=== PATIENT | female | born 1975 | race Caucasian/White ===

== ENCOUNTER 2024-04-27 21:30 | Emergency (ER) | payer SELFPAY ==
[2024-04-27 21:33] VITALS: BP 174/114
[2024-04-27 21:52] LABS: Hematocrit 35.3 % (37.0-47.0); Hemoglobin 11.7 g/dL (12.0-16.0); Mean Corp Hgb Conc. 33.1 g/dL (33.0-37.0); Mean Corpuscular Hgb 27.3 pg (27.0-31.0); Mean Corpuscular Volume 82.3 fL (81.0-99.0); Mean Platelet Volume 10.3 fL (7.4-10.4); Platelet Count 260 10^3/uL (130-400); Red Blood Cell Count 4.29 10^6/uL (4.20-5.40); Red Cell Dist. Width 14.3 % (11.5-14.5); White Blood Cell Count 11.6 10^3/uL (4.8-10.8)
[2024-04-27 21:52] LABS: Urine Albumin 1+ (Neg - Trace); Urine Bilirubin Negative (Negative); Urine Character Slightly Cloudy (Clear); Urine Color Yellow; Urine Glucose Negative (Negative); Urine Ketone Negative (Negative); Urine Leukocyte 2+ (Negative); Urine Nitrite Negative (Negative); Urine Occult Blood 1+ (Negative); Urine Specific Gravity 1.015 (<1.030); Urine Urobilinogen Negative (Neg - 1+)
[2024-04-27 22:03] LABS: HCG, Serum Qualitative Screen Negative
[2024-04-27 22:06] LABS: Blood Urea Nitrogen 16 mg/dl (7-17); Calcium 9.4 mg/dl (8.4-10.2); Carbon Dioxide 27 mmol/L (22-30); Chloride 100 mmol/L (98-107); Glucose 109 mg/dl (70-99); Potassium 4.3 mmol/L (3.5-5.1); Sodium 140 mmol/L (135-145); eGFR > 60.00
[2024-04-27 22:26] LABS: Urine White Cell 40-50 /HPF (0-5)
[2024-04-27 22:27] LABS: Urine Squamous Cell >30 /LPF (Few)
[2024-04-28 00:15] VITALS: BP 131/86
[2024-04-28 00:27] VITALS: BMI 38.7
--- NOTE | 2024-04-28 00:31 | ED.GENMED ---
Addendum entered and electronically signed by Krishna Matias PA-C 04/30/24 07:50:
Urine culture preliminarily shows 100,000 colony-forming units of E. coli. On cefdinir. Diabetes pending
Original Note:
History of Present Illness
General
Chief Complaint: Urinary Symptoms
Source: patient
Exam Limitations: none
Time Seen by Provider: 04/28/24 00:08
History of Present Illness
History of Present Illness:
This is a 49 year old female that comes in with c/o feeling like she had a UTI. States that yesteday she felt like she was getting a UTI so she started increased her water intake and drink Cranberry juice. States that she felt better when she went
to bed. Sates that today she had more discomfort with urination and there was right sided abd pain that wrapped around to the back. States that it was also going down into her leg. States that she has felt nauseated and had some diarrhea with the
urinary burning.
Past History
Past History
ED Past Medical History: GERD, HTN, Psychiatric (Anxiety) and Other (Pilonidal cyst)
ED Past Surgical History: Appendectomy, (X 2) and Orthopedic (Right knee surgery, Right hand tendon repair)
Social History
Tobacco: Former smoker
Alcohol: None
Drug: Marijuana
Personal:
Living: with family
Review of Systems
Review of Systems
All Other Systems: ROS reviewed and negative except as documented in HPI and ROS
Constitutional: Reports no symptoms; Denies fever or chills
EENT: Reports no symptoms
Respiratory: Reports no symptoms; Denies cough or trouble breathing
Cardiac: Reports no symptoms; Denies chest pain
ABD/GI: Reports abdominal pain (Right sided), nausea and diarrhea; Denies vomiting
: Reports dysuria, frequency and flank pain (Right sided); Denies urgency
Musculoskeletal: Reports no symptoms
Skin: Reports no symptoms
Neurological: Reports no symptoms; Denies dizzy or headache
Psychiatric: Reports no symptoms
Phy Exam
General Physical Exam
General Presentation: well appearing and no apparent distress
General age: appears stated age
General Skin: warm and dry
General Habitus: normal
General Mental: alert
General Hydration: appears well hydrated
ENT Exam
ENT Exam: TM's normal, pharynx normal and neck supple
Eye Exam
Eye Exam: EOMI
Cardiovascular Exam
Cardiovascular Exam: regular rate/rhythm, no edema, no murmur and normal peripheral pulses
Pulmonary Exam
Pulmonary Exam: lungs clear, no respiratory distress, no rales, chest non tender, no crackles, no rhonchi, no wheezing and no cough
Gastrointestinal Exam
Gastrointestinal Exam: normal bowel sounds, soft, no organomegaly, no pulsatile mass, non distended, no cva tenderness and tender (Slight right sided tenderness with palpation)
Musculoskeletal Exam
Musculoskeletal Exam: full ROM and no edema
Skin Exam
Skin Exam: normal color, warm/dry, no rash and no petechia
Psychiatric Exam
Psychiatric Exam: normal mood/affect
Course
Orders/Labs/Results
Orders:
Orders
04/27/24 21:37
Test Result ONCE
04/27/24 21:43
Basic Metabolic Panel Urgent
Complete Blood Count/No Diff Urgent
HCG, Serum Qualitative Screen Urgent
04/27/24 21:44
Urinalysis Urgent
Date Specimen was Collected: 04/27/24
Time Specimen was Collected: 21:37
Urine Microscopic Urgent
Date Specimen was Collected: 04/27/24
Time Specimen was Collected: 21:37
04/28/24 00:22
Urinalysis Reflex To Culture Urgent
Date Specimen was Collected: 04/28/24
Time Specimen was Collected: 00:19
Urine Microscopic Reflex Cult Urgent
Urine Culture Urgent
SHI Source: U
Specimen Description:
Date Specimen was Collected: 04/28/24
Time Specimen was Collected: 00:19
04/28/24 00:30
CT Abd/pel Without Iv Or Oral Urgent
Comment: appendectomy
Reason For Exam: Right flank pain
0.9% Sodium Chloride 1000 ml [Nss] 1,000 ml IV BOLUS
Ketorolac [Toradol] 30 mg IV NOW STA
Ondansetron Injectable [Zofran] 4 mg IV NOW STA
04/28/24 02:07
CefTRIAXone [Rocephin] 1,000 mg IV NOW STA
04/28/24 02:12
Sterile Water [Sterile Water For Injection] 10 ml .[address] .[facility]
Abnormal Lab Results
04/27/24 04/27/24 04/28/24
21:43 21:44 00:22
WBC 11.6 H 10^3/uL
(4.8-10.8)
Hgb 11.7 L g/dL
(12.0-16.0)
Hct 35.3 L %
(37.0-47.0)
Glucose 109 H mg/dl
(70-99)
Urine Occult Blood 1+ A
(Negative)
Ur Occult Blood Reflex 1+ A
(Negative)
Urine Nitrite (Reflex) Positive A
(Negative)
Ur Leukocyte Esterase 2+ A
(Negative)
Leukocyte Esterase Rfl 2+ A
(Negative)
Urine RBC 3-6 A /HPF 26-30 A /HPF
(0-2) (0-2)
Urine WBC 40-50 A /HPF
(0-5)
Urine WBC (Reflex) >100 A /HPF
(0-5)
Urine Bacteria (Reflex) Many A
(Negative)
Urine Albumin 1+ A
(Neg - Trace)
Urine Albumin (Reflex) 1+ A
(Neg - Trace)
04/27/24 21:43
04/27/24 21:43
WBC slightly elevated. H/H slightly low, Glucose nonfasting. Urine positive for infection, HCG negative
Vital Signs
Initial and Last Documented VS:
Initial Vital Signs
Temp Pulse Resp BP Pulse Ox
98 F 76 24 174/114 100
04/27/24 21:33 04/27/24 21:33 04/27/24 21:33 04/27/24 21:33 04/27/24 21:33
Last Documented Vital Signs
Temp Pulse Resp BP Pulse Ox
98 F 72 18 134/69 98
04/27/24 21:33 04/28/24 02:00 04/28/24 02:00 04/28/24 02:00 04/28/24 02:00
MDM/Problems Addressed
Differential Diagnosis Includes:
renal calculus, UTI, Pyelonephritis
MDM/Problems Addressed:
This is a 49 year old female that comes in with c/o right sided abd pain and urinary burning and frequency. states that this started yesterday.
will check labs. IV fluids. Pain medication and CT scan.
back into see patient. Explained that she has a urinary tract infection. The CT shows that there is very mild hydronephrosis and hydroureter with stranding and this could be due to infection or that she already passed a stone. Patient has been given
IV antibiotic here and will place her on oral antibiotics for home. Encouraged patient to follow up with the PCP a week after she is off the medication for a repeat urine. Patient to return with any concerns.
Chronic conditions affecting care:
NA
Acute Exacerbation and/or Progression of Chronic Illness:
NA
*Radiology
Radiology exam reviewed: radiology read reviewed (CT night hawk-Very mild right hydronephrosis, hydroureter and perinephric stranding. No definite stone identified. May reflect a recently passes stone or infection. Other less likely considerations
include radiolucent/occult stone, hematoma, stricture or neoplasm. Please clinically correlate with ), all reviewed NAD by ED Provider (C cont- history and for signs and symptoms of infection. Appendectomy. Bowel is without evidence of obstruction.
Gallbladder is unremarkable. NO obvious stones but CT has a diminished sensitivity for noncalcified gallstones. No biliary dilation. No adnexal masses or significant free fluid. ) and other (Ct cont- fatty liver. Lack of Intravenous contrast
diminishes evaluation of the visceral organs. )
*Pulse Oximetry
Patient hypoxic: no
*EKG
Interpreted by ED Provider?: NA
Rate: EKG- N/A
*Blind Cleaner Interpretation
Rate: Blind Cleaner- N/A
*Critical Care Note
Total Time (30-74mins, 75-104mins- exclusive of procedures): Not Applicable
ED Attending Note
-
Portions of this chart may have been created with voice recognition software.� Occasional wrong word or��sound alike� substitutions may have occurred due to the inherent limitations of voice recognition software.
Discharge Plan
Departure
Patient Disposition: Home (Routine Discharge)
Date of Disposition: 04/28/24
Time of Disposition: 02:58
Patient with high blood pressure during this ER visit?: Yes
Condition: Good
Covid-19: Not Applicable
Discharge Problem:
Urinary tract infection
Instructions: Urinary Tract Infection, Adult (DC), BLOOD PRESSURE
Prescriptions:
New
cefdinir 300 mg capsule
300 mg PO BID Qty: 14 0RF
No Action
lisinopril 5 MG tablet
5 mg PO DAILY
pantoprazole 40 mg Tablet,Delayed Release (Dr/Ec)
40 mg PO DAILY
sertraline 150 mg Capsule
150 mg PO DAILY
Referrals:
Katie Humphreys PA-C [Family Provider] - Follow up in 10 days
Activity Restrictions/Additional Instructions:
As discussed, your do have a urinary tract infection. There was very mild hydronephrosis of the left with stranding of the ureter. This may be due to infection or you recently passed a stone. You have been given IV antibiotic here and a prescription
has been sent to your pharmacy. Please increase your water intake to 8-8oz glasses daily. Follow up with the family doctor for repeat urine after you have been off the antibiotic for a week. IF YOU HAVE FEVER, INCREASED OR CHANGING PAIN, OR YO HAVE
ANY OTHER CONCERNS PLEASE RETURN TO THE EMERGENCY ROOM .
Interventions
Interventions:
*Risk Screen - Suicide Last Done: 04/27/24 21:33
*General Assessment Last Done: 04/28/24 00:13
*Neglect/Abuse Screening Last Done: 04/27/24 21:33
ED- Fall Risk Assessment Last Done: 04/28/24 00:25
*ED COVID-19 Vaccine History Last Done: 04/28/24 00:13
NM-Rybfky-Hovcwpqnyf Assessment Last Done: 04/28/24 00:25
ED-Female Genitourinary Assessment Last Done: 04/28/24 00:25
Discharge Date and Time
Print Language: ARMENIAN
[2024-04-28 00:36] LABS: Urine Albumin 1+ (Neg - Trace); Urine Bilirubin Negative (Negative); Urine Character Slightly Cloudy (Clear); Urine Color Yellow; Urine Glucose Negative (Negative); Urine Ketone Negative (Negative); Urine Leukocyte 2+ (Negative); Urine Nitrite Positive (Negative); Urine Occult Blood 1+ (Negative); Urine Urobilinogen Negative (Neg - 1+)
[2024-04-28] MEDS: NSS 1000 IV (00:43)
[2024-04-28] MEDS: TORADOL 30 MG IV (00:44)
[2024-04-28] MEDS: ZOFRAN 4 MG IV (00:44)
[2024-04-28 01:15] VITALS: BP 137/82
[2024-04-28 01:18] LABS: Urine Squamous Cell >30 /LPF (Few)
[2024-04-28 01:19] LABS: Urine Amorphous Seen; Urine White Cell >100 /HPF (0-5)
[2024-04-28 01:20] LABS: Urine Bacteria Many (Negative); Urine Red Blood Cell 26-30 /HPF (0-2)
[2024-04-28 02:00] VITALS: BP 134/69
[2024-04-28] MEDS: ROCEPHIN 1000 MG IV (02:13)
[2024-04-28 03:00] VITALS: BP 130/85
== END 2024-04-28 03:15 | disposition home or self-care (01) ==
LOC: EMR 21:30
PROVIDERS: Clinical Nurse Specialist Family Health; Student in an Organized Health Care Education/Training Program; EMERGENCY PHYSICIAN Emergency Medicine; FAMILY PHYSICIAN Student in an Organized Health Care Education/Training Program
DX: N39.0 Urinary tract infection, site not specified (principal); B96.20 Unspecified Escherichia coli [E. coli] as the cause of diseases classified elsewhere; R11.0 Nausea; R19.7 Diarrhea, unspecified; N13.30 Unspecified hydronephrosis; K76.0 Fatty (change of) liver, not elsewhere classified; K21.9 Gastro-esophageal reflux disease without esophagitis; I10 Essential (primary) hypertension; F41.9 Anxiety disorder, unspecified; Z87.891 Personal history of nicotine dependence; Z91.030 Bee allergy status
CPT/HCPCS: 99284; 96374; 96375 ×2; 96361; 74176; 80048; 81003; 81015; 84703; 85027; 87086; 87088; 87186

== ENCOUNTER 2024-09-22 15:11 | Emergency (ER) | payer SELFPAY ==
[2024-09-22 15:13] VITALS: BP 167/110
--- NOTE | 2024-09-22 15:45 | ED.GENMED ---
History of Present Illness
General
Chief Complaint: Head Injury
Source: patient
Time Seen by Provider: 09/22/24 15:28
History of Present Illness
History of Present Illness:
49-year-old female with past medical history of hypertension and GERD presenting to the emergency department for evaluation of head injury that occurred when she was at work, was bending down to a student change as his pants and got no wet and the
student jumped up striking the patient in the right frontal forehead noting that she immediately saw stars, felt dazed and is now had a worsening headache, light sensitivity and 'feeling off'. Patient does note a history of migraines as well and
states she feels as if the migraine is likely getting triggered. She denies any loss consciousness, vomiting, visual changes, focal weakness or numbness or any other concerns. Denies any use of anticoagulants.
Past History
Past History
ED Past Medical History: GERD, HTN, Psychiatric (Anxiety) and Other (Pilonidal cyst)
ED Past Surgical History: Appendectomy, (X 2) and Orthopedic (Right knee surgery, Right hand tendon repair)
Social History
Tobacco: Former smoker
Alcohol: None
Drug: Marijuana
Personal:
Living: with family
Review of Systems
Review of Systems
All Other Systems: ROS reviewed and negative except as documented in HPI and ROS
Phy Exam
Physical Exam
Physical Exam:
GENERAL: Alert , in no apparent distress
HEAD: Small contusion to the right forehead just proximal to the right eyebrow
EYE: conjunctiva clear, pupils 4 mm bilateral
NECK: Supple, no midline tenderness
ENT: mmm. Patient able to open and close jaw as well as medially and laterally deviate without pain. No dental injury
LUNGS: no acute respiratory distress
NEUROLOGICAL: Alert and oriented, ambulates with steady gait, no dysmetria or ataxia
SKIN: Warm and dry, skin intact.
MUSCULOSKELETAL: well perfused.
PSYCH: Normal and appropriate interaction.
Scores
Heart Failure Risk
Heart Failure Risk Score: Not Applicable
Heart Score for Chest Pain Patients
STEMI patient?: Not applicable
Withdrawal Assessment of Alcohol
Withdrawal Assessment Completed?: Not applicable
Course
Vital Signs
Initial and Last Documented VS:
Initial Vital Signs
Temp Pulse Resp BP Pulse Ox
98.3 F 83 16 167/110 98
09/22/24 15:13 09/22/24 15:13 09/22/24 15:13 09/22/24 15:13 09/22/24 15:13
Last Documented Vital Signs
Temp Pulse Resp BP Pulse Ox
98.3 F 86 18 160/90 98
09/22/24 15:13 09/22/24 16:22 09/22/24 16:22 09/22/24 16:22 09/22/24 16:22
MDM/Problems Addressed
Differential Diagnosis Includes:
Contusion, concussion, I do not have concern for intracranial bleeding or calvarial fracture, tension headache, migraine headache
MDM/Problems Addressed:
49-year-old female presenting to the ER for evaluation after she was excellently hit in the right frontal scalp by a child proximately 45 minutes prior to arrival to the ER. Patient does note some mild postconcussive symptoms. We discussed risk
versus benefit of CT imaging and at this time patient feels comfortable foregoing CT scan. Advised on symptomatic care of head injury/concussion. Patient will follow-up with primary care provider as needed. Aware of return precautions to the ER.
Stable for discharge.
*Pulse Oximetry
Patient hypoxic: no
*Critical Care Note
Total Time (30-74mins, 75-104mins- exclusive of procedures): Not Applicable
ED Attending Note
-
Portions of this chart may have been created with voice recognition software.� Occasional wrong word or��sound alike� substitutions may have occurred due to the inherent limitations of voice recognition software.
Discharge Plan
Departure
Patient Disposition: Home (Routine Discharge)
Date of Disposition: 09/22/24
Time of Disposition: 15:45
Patient with high blood pressure during this ER visit?: Yes
Discharge Problem:
Head injury
Instructions: Concussion, Adult (DC)
Prescriptions:
No Action
lisinopril 5 MG tablet
5 mg PO DAILY
pantoprazole 40 mg Tablet,Delayed Release (Dr/Ec)
40 mg PO DAILY
sertraline 150 mg Capsule
150 mg PO DAILY
cefdinir 300 mg capsule
300 mg PO BID Qty: 14 0RF
Stand Alone Forms: Return to Work
Interventions
Interventions:
*Risk Screen - Suicide Last Done: 09/22/24 15:24
*General Assessment Last Done: 09/22/24 15:24
*Neglect/Abuse Screening Last Done: 09/22/24 15:24
*ED COVID-19 Vaccine History Last Done: 09/22/24 15:24
*Nursing Disposition Last Done: 09/22/24 16:22
ED- Neurological Assessment Last Done: 09/22/24 15:24
ED-Skin Assessment Last Done: 09/22/24 15:24
Discharge Date and Time
Discharge Date/Time: 09/22/24 16:23
Print Language: PAP[place]
[2024-09-22 16:22] VITALS: BP 160/90
== END 2024-09-22 16:23 | disposition home or self-care (01) ==
LOC: EMR 15:11
PROVIDERS: EMERGENCY PHYSICIAN Student in an Organized Health Care Education/Training Program; FAMILY PHYSICIAN Student in an Organized Health Care Education/Training Program
DX: S00.83XA Contusion of other part of head, initial encounter (principal); W50.0XXA Accidental hit or strike by another person, initial encounter; Y99.0 Civilian activity done for income or pay; I10 Essential (primary) hypertension; K21.9 Gastro-esophageal reflux disease without esophagitis; Z87.891 Personal history of nicotine dependence
CPT/HCPCS: 99282

== ENCOUNTER 2025-05-10 14:15 | Emergency (ER) | payer SELFPAY ==
[2025-05-10 14:18] VITALS: BP 148/95
--- NOTE | 2025-05-10 16:43 | ED.GENMED ---
History of Present Illness
General
Chief Complaint: Head Injury
Source: patient
Exam Limitations: none
Time Seen by Provider: 05/10/25 15:22
Nursing documentation reviewed up to this point in time: agreed with
History of Present Illness
History of Present Illness:
see MDM
Past History
Past History
ED Past Medical History: GERD, HTN, Psychiatric (Anxiety) and Other (Pilonidal cyst)
ED Past Surgical History: Appendectomy, (X 2) and Orthopedic (Right knee surgery, Right hand tendon repair)
Social History
Tobacco: Former smoker
Alcohol: None
Drug: Marijuana
Personal:
Living: with family
Review of Systems
Review of Systems
Allergies reviewed?: Yes
All Other Systems: Not applicable
Phy Exam
Physical Exam
Physical Exam:
GENERAL: Alert , in no apparent distress
HEAD: NCAT
EYE: pupils equal and reactive, no nystagmus, minimal photophobia, NO VISION LOSS; NO VISUAL FIELD CUTS
NECK: Supple,full rom, nontender
ENT: o/p clr, mmm.
CARDIAC: Regular rate and rhythm . no edema
LUNGS: Clear breath sounds bilaterally, no acute respiratory distress, no wheezes/rales/rhonchi
ABDOMEN: Soft, without focal tenderness, no r/g, no cvat
NEUROLOGICAL: Alert and orientedx 4, cn intact, no facial asymmetry, 5/5 strength in UE/LE, sensation intact, romberg neg, ambulates without assistance, neg pronator drift
SKIN: Warm and dry, skin intact.
MUSCULOSKELETAL: No edema, well perfused.
PSYCH: Normal and appropriate interaction.
Course
Orders/Labs/Results
Orders:
Orders
05/10/25 15:33
CT Head W/o Iv Contrast Urgent
Comment:
Reason For Exam: L posterior head injury, no thinners
Vital Signs
Blood pressure: 137/92
Initial and Last Documented VS:
Initial Vital Signs
Temp Pulse Resp BP Pulse Ox
36.8 C 70 16 148/95 98
05/10/25 14:18 05/10/25 14:18 05/10/25 14:18 05/10/25 14:18 05/10/25 14:18
Last Documented Vital Signs
Temp Pulse Resp BP Pulse Ox
36.8 C 70 16 137/92 98
05/10/25 14:18 05/10/25 14:18 05/10/25 14:18 05/10/25 17:15 05/10/25 16:46
MDM/Problems Addressed
Differential Diagnosis Includes:
see MDM
MDM/Problems Addressed:
Note:
CHIEF COMPLAINT(S)
Headache and visual disturbances following a head injury.
HISTORY OF PRESENT ILLNESS
The patient is a 50-year-old female who experienced a head injury at work when a student struck her ont he back of the head approx 2 hours ago. Despite turning her head to avoid the impact, the patient did not lose consciousness. However, she
immediately developed a headache similar to his typical migraine episodes. The patient reported blurry vision and intermittent double vision in the left eye, the double vision has resolved; but she still has L eye blurriness, SHE NOTES THE DOUBLE
VISION AND BLURRY VISION IS CHRONIC FOR HER WITH HER MIGRAINES. sHe also experienced slight nausea and lightheadedness, causing difficulty when walking.
The patient has a history of migraines without regular neurologist consultation. Her migraines predominantly affect the left side, sometimes leading to temporary vision loss in the left eye. Previous diagnostic workups, including angiography, have
not revealed significant findings. The patient is unsure if current symptoms are due to migraine or concussion. she is on medication for hypertension, depression, and thyroid issues, and takes analgesics such as Excedrin for migraines, which
contains aspirin, caffeine, and acetaminophen.
PAST MEDICAL AND SURIGICAL HISTORY
1. Hypertension
2. Depression
3. Thyroid disorder
MEDICATIONS
1. Antihypertensive (Exact medication unspecified)
2. Antidepressant
3. Thyroid medication
4. Excedrin for migraines
REVIEW OF SYSTEMS
- Neurological: Headache, blurry vision, and intermittent double vision.
- Gastrointestinal: Nausea.
- Cardiovascular: Lightheadedness.
PHYSICAL EXAM
see above
- Nursing notes reviewed and vital signs reviewed.
PROBLEM LIST
Acute:
1. Headache and visual disturbances possibly secondary to head trauma or migraine.
2. Nausea and lightheadedness post head injury.
Chronic:
1. Hypertension
2. Depression
3. Thyroid disorder
PLAN
1. Conduct a CT scan of the head to rule out any intracranial bleeding or structural injury.
2. Offer migraine treatment via Excedrin or intravenous medication, depending on severity and patient preference.
3. Monitor patient for changes in symptoms or neurologic deficits.
DIFFERENTIAL DIAGNOSIS
The Differential Diagnosis includes, in no particular order and is not limited to:
1. Migraine with aura
2. Concussion
3. Intracranial hemorrhage
4. Ocular migraine
5. Transient ischemic attack
6. Vertigo
7. Vestibular migraine
8. Stroke
9. Retinal detachment
10. Hypertensive crisis
50 y/o F
h/o htn
migranies with aura
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
no LOC
has L sided headache with some L blurriness in the eye which is typical of her migraines
she also feels nauseated and 'off'
no AC
neuro intact here, the L eye was minimally blurry and without vision loss, and improved from previous
headache 5/10
no neck tendneress
ct head neg
pt declined pain meds, will take excedrin at home
return precautions
workman'[s comp clearance for concussion
appreciate bp, pt is in some pain and likely related to her situation and headache
*Pulse Oximetry
SaO2: 98
Oxygen Mode of Delivery: Room air
Patient hypoxic: no (98)
*Critical Care Note
Total Time (30-74mins, 75-104mins- exclusive of procedures): Not Applicable
ED Attending Note
-
Portions of this chart may have been created with voice recognition software.� Occasional wrong word or��sound alike� substitutions may have occurred due to the inherent limitations of voice recognition software.
Discharge Plan
Departure
Patient Disposition: Home (Routine Discharge)
Date of Disposition: 05/10/25
Time of Disposition: 17:07
Patient with high blood pressure during this ER visit?: No
Condition: Fair
Covid-19: Not Applicable
Discharge Problem:
Concussion, Migraine
Instructions: Concussion, Adult (DC)
Prescriptions:
No Action
lisinopril 5 MG tablet
5 mg PO DAILY
pantoprazole 40 mg Tablet,Delayed Release (Dr/Ec)
40 mg PO DAILY
sertraline 150 mg Capsule
150 mg PO DAILY
cefdinir 300 mg capsule
300 mg PO BID Qty: 14 0RF
Referrals:
Katie Humphreys PA-C [Family Provider, Family Practice] - Follow up in 2-3 days
Stand Alone Forms: Return to Work
Activity Restrictions/Additional Instructions:
YOUR CAT SCAN WAS NEGATIVE FOR TRAUMA
BUT YOU PROBABLY HAVE A CONCUSSION
BRAIN REST 48 HOURS (LIMIT PHONE, TV, READING, COMPUTER)
AFTER THAT YOU CAN RETURN TO THOSE ACTIVITIES
BUT YOU SHOULD BE CLEARED TO GO BACK TOW ORK
SEE WORKMAN'S COMP
RETRUN FOR ANY CONCERNS: SEVERE WORST HEADACHE OF LIFE, CONFUSION, VOMITING ETC
Interventions
Interventions:
*Risk Screen - Suicide Last Done: 05/10/25 17:00
*General Assessment Last Done: 05/10/25 17:00
*Neglect/Abuse Screening Last Done: 05/10/25 17:00
*Nursing Disposition Last Done: 05/10/25 17:57
ED- Neurological Assessment Last Done: 05/10/25 17:00
ED-Skin Assessment Last Done: 05/10/25 17:00
Discharge Date and Time
Discharge Date/Time: 05/10/25 17:58
Print Language: NIGERIEN
== END 2025-05-10 17:58 | disposition home or self-care (01) ==
LOC: EMR 14:15
PROVIDERS: EMERGENCY PHYSICIAN Emergency Medicine; FAMILY PHYSICIAN Student in an Organized Health Care Education/Training Program
DX: S06.0X0A Concussion without loss of consciousness, initial encounter (principal); W50.0XXA Accidental hit or strike by another person, initial encounter; Y92.89 Other specified places as the place of occurrence of the external cause; Y99.0 Civilian activity done for income or pay; G43.909 Migraine, unspecified, not intractable, without status migrainosus; I10 Essential (primary) hypertension; Z87.891 Personal history of nicotine dependence; Z90.49 Acquired absence of other specified parts of digestive tract
CPT/HCPCS: 99284; 70450